=== PATIENT | male | born 1970 | race African-American/Black ===

== ENCOUNTER → 2020-04-30 | Outpatient (CLI) | payer OTHER | LOC: ULTRA 16:11 | PROVIDERS: ATTEND Nurse Practitioner | DX: Z13.6 Encounter for screening for cardiovascular disorders (principal); N43.2 Other hydrocele; I86.1 Scrotal varices; E78.00 Pure hypercholesterolemia, unspecified; I25.10 Atherosclerotic heart disease of native coronary artery without angina pectoris ==